=== PATIENT | female | born 1935 | race Asian ===

== ENCOUNTER 2018-10-25 09:01 | Inpatient (IN) | payer OTHER ==
[~2018-10-25] VITALS: Ht 165.1 cm; Wt 37.4 kg
[2018-10-25 10:39] LABS: BASOPHIL % 0.6 % (0-2); PLATELET COUNT 225 x10^3mcL (130-400); RED CELL DISTRIBUTION WIDTH 14.3 % (11.5-14.5)
[2018-10-25 10:58] LABS: microscopic required? YES; urine erythrocyte NEGATIVE (NEGATIVE)
[2018-10-25 11:09] LABS: CALCIUM 8.6 mg/dL (8.5-10.1); CARBON DIOXIDE 32.4 mmol/L (21-32); CHLORIDE SERUM 99 mmol/L (98-107); CREATININE SERUM 0.9 mg/dL (0.6-1.0); GLUCOSE SERUM 104 mg/dL (74-106); POTASSIUM SERUM 3.8 mmol/L (3.5-5.1); SODIUM SERUM 135 mmol/L (136-145)
[2018-10-25 11:14] LABS: ALKALINE PHOSPHATASE 68 U/L (46-116); ALT/SGPT 23 U/L (14-59); AST/SGOT 22 U/L (15-37); BILIRUBIN TOTAL 0.78 mg/dL (0.20-1.00); TOTAL PROTEIN, SERUM 7.7 g/dL (6.4-8.2)
[2018-10-25 13:14] VITALS: BP 146/76
[2018-10-25 13:20] VITALS: Ht 165.1 cm; Wt 37.4 kg
[2018-10-25 17:49] VITALS: BP 145/72
[2018-10-25 20:43] VITALS: BP 126/56
[2018-10-26 05:34] VITALS: BP 143/65
[2018-10-26 09:16] VITALS: BP 108/60
[2018-10-26 17:25] VITALS: BP 150/87
[2018-10-26 21:21] VITALS: BP 143/81
[2018-10-27 04:57] VITALS: BP 145/81
[2018-10-27 07:33] LABS: BASOPHIL % 0.3 % (0-2); PLATELET COUNT 162 x10^3mcL (130-400); RED CELL DISTRIBUTION WIDTH 13.8 % (11.5-14.5)
[2018-10-27 07:42] LABS: CALCIUM 7.6 mg/dL (8.5-10.1); CARBON DIOXIDE 27.6 mmol/L (21-32); CHLORIDE SERUM 102 mmol/L (98-107); CREATININE SERUM 0.6 mg/dL (0.6-1.0); GLUCOSE SERUM 104 mg/dL (74-106); SODIUM SERUM 136 mmol/L (136-145)
[2018-10-27 07:48] LABS: POTASSIUM SERUM 2.8 mmol/L (3.5-5.1)
[2018-10-27 09:44] VITALS: BP 163/79
[2018-10-27] MEDS ORDERED: FLA250 PO (13:10)
[2018-10-27 16:42] VITALS: BP 141/81
== END 2018-10-27 21:10 | disposition home or self-care (01) | DRG 391 ==
LOC: ED 09:01 → MU 12:01
PROVIDERS: Emergency Medicine; ADMIT Internal Medicine Pulmonary Disease
DX: K52.9 Noninfective gastroenteritis and colitis, unspecified (principal); E43 Unspecified severe protein-calorie malnutrition; Z68.1 Body mass index [BMI] 19.9 or less, adult; R62.7 Adult failure to thrive; E86.0 Dehydration; E87.6 Hypokalemia; Z85.3 Personal history of malignant neoplasm of breast; Z85.42 Personal history of malignant neoplasm of other parts of uterus
CPT/HCPCS: J0744; J1650; J3480; J3490; J7030; Q0092